=== PATIENT | female | born 1985 | race Two or more races ===

== ENCOUNTER 2016-11-25 19:11 | Emergency (ER) | payer MEDICAID ==
[~2016-11-25] VITALS: Ht 170.2 cm; Wt 92.5 kg
[2016-11-25 19:30] VITALS: BP 102/71
[2016-11-25] MEDS ORDERED: TETANUS-DIPTH-ACEL PERTUSSIS 0.5ML SYRG IM ONE (20:30)
== END 2016-11-25 21:06 | disposition home or self-care (01) ==
LOC: EDBD 19:18 → ER 19:18
DX: S61.230A Puncture wound without foreign body of right index finger without damage to nail, initial encounter (principal); Z23 Encounter for immunization; Z88.8 Allergy status to other drugs, medicaments and biological substances; W26.8XXA Contact with other sharp object(s), not elsewhere classified, initial encounter; W45.8XXA Other foreign body or object entering through skin, initial encounter; Y93.89 Activity, other specified; Y99.8 Other external cause status; Y92.89 Other specified places as the place of occurrence of the external cause
CPT/HCPCS: 10120; 90471; 90715